=== PATIENT | female | born 1965 | race Caucasian/White ===

== ENCOUNTER 2024-11-22 15:04 | Outpatient (AMB) | payer OTHER, SELFPAY ==
--- NOTE | 2024-11-22 15:06 | A.OFFVIS_ITS ---
Vital Signs 11/22/24 15:10 Height 5 ft 4 in Weight 254 lb BMI 43.6 BP 141/78 H Blood Pressure Location Lt brachial Position Sitting Respiration 16 Pulse 90 Pulse Source Pulse Oximeter Pulse Oximetry (%) 96 Oxygen Delivery Method Room Air Intake Visit Reasons: LOW BACK PAIN Chip Unloader Required: No Accompanied by: Life Partner Allergies oxycodone Allergy (Mild, Verified 11/22/24 15:08) Unknown HPI Comments Details: The patient is a 59-year-old female presenting with chronic back pain and left groin and thigh pain. The pain began in 2018 and has been persistent, radiating from the back through the left groin, hip, outer thigh, and knee, sometimes extending to the ankle. Denies any numbness or tingling, but reports increased sensitivity to light touch. 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 Patient reports searing pain that radiates from superior lateral hip into her left groin with throbbing sensation down to her thigh. She also reports throbbing pain in her lateral joint line of left knee. On bad days, her pain radiates down through her calf and into her left foot. Patient sleeps with pillow under her knee, on a recliner or her bed. She also rides her electric assist bike that does not seem aggravate her symptoms. The patient has been evaluated by multiple specialists, including [facility] Orth opedics and Neurology, with varying diagnoses such as a meniscus tear and tight calf muscles, but declined surgical intervention. Physical therapy was attempted, but the pain worsened over time. The patient was prescribed duloxetine, which initially alleviated the pain but has since become less effective, with pain returning in the left anterior thigh and leg. She avoids wearing tight clothing. Denies previous spine surgery or injections. Recent lumbar spine MRI noted for mild spondylosis without significant central or neuroforaminal stenosis. The patient has a history of major depressive disorder, fibromyalgia, morbid obesity, sleep apnea and hypothyroidism, which are being managed concurrently. She has undergone multiple surgeries, including lap band surgery and removal of the left ovary, and has an umbilical hernia that has not been repaired. The patient also reports a history of fatty liver and is cautious about using medications like Tylenol and ibuprofen due to this condition. - Pain onset in 2017, chronic in nature - Radiates from back to left groin, hip, outer thigh, knee, and sometimes ankle - Described as constant throbbing, dull, sore, hurting, aching, heavy, tiring, r adiating, fearful, at times unbearable, 8-10/10 throughout the day, 5-6/10 sitting on recliner - Exacerbated by prolonged standing, walking, sitting, and certain movements, changing positions - Relieved initially by duloxetine, but effectiveness has decreased - Interferes with daily activities such as driving and standing up - Affect: Pain impacts mood, causing frustration and fear of masking underlying issues - Analgesia: Duloxetine prescribed, initially effective but now less so; patient avoids Tylenol and Ibuprofen due to fatty liver - Adverse Effects: Duloxetine affects sexual drive - Activities of Daily Living: Pain affects ability to stand, drive, and perform daily tasks - Aberrant Drug Related Behaviors: No evidence of misuse or abuse of medications Oswestry Low Back Pain Disability Score=30 PFSH Medical History (Updated 11/22/24 @ 16:02 by GARETH Nguyen) Hx of pilonidal cyst Vitamin D deficiency Rotator cuff syndrome of left shoulder JULIETA (obstructive sleep apnea) Morbid obesity IFG (impaired fasting glucose) Hypothyroidism GERD (gastroesophageal reflux disease) Fibromyalgia Dysmetabolic syndrome X Carpal tunnel syndrome Asthma Allergic rhinitis Surgical History (Updated 11/22/24 @ 15:21 by Anabelle Ramsey MA) Hx of laparoscopic gastric banding History of endometrial ablation Hx of section Review of Systems Const Details: - Musculoskeletal: Reports chronic back pain radiating to left groin, hip, outer thigh, knee, and ankle - Neurological: Denies numbness or tingling, bladder or bowel dysfunction or saddle anesthesia All systems reviewed & are unremarkable except as noted in HPI and below Physical Exam Vital Signs: Last Vital Signs Pulse 90 11/22/24 15:10 Resp 16 11/22/24 15:10 BP 141/78 H 11/22/24 15:10 Pulse Ox 96 11/22/24 15:10 Oxygen Delivery Method Room Air 11/22/24 15:10 BMI result Body Mass Index 43.6 General: Appears afebrile. Morbidly obese. Alert and oriented. Mood and affect appropriate. Follows and participates in conversation appropriately. Respiratory effort is unlabored. No cough. Able to transition from sit to stand unassisted. Ambulates with bilaterally normal heel strike and toe off. GI Inspection: Yes normal to inspection, No abdominal wall ecchymosis, Yes Abdom inal panniculus present and Yes obesity Palpation (GI): Soft to palpation, Tenderness to palpation present (GI) in the RLQ, Hernia present indirect inguinal on the left and diffuse and umbilical and No Rebound tenderness present General: Yes no CVA tenderness Back/Spine/Pelvis Other: Patient is able to walk and stand on heels and tip toes with no difficulties demonstrating good motor tone. No limping. Can flex forward to 65-70 degrees and extend to 5-10 degrees before experiencing lumbar pain. Demonstrates 5/5 strength of quadriceps bilaterally as well as flexion/dorsiflexion of bilateral feet against resistance. 2+ pedal pulses bilaterally. Straight leg rise with dorsiflexion negative bilaterally. +2 patellar and achilles reflexes bilaterally. Facet loading test positive bilaterally. Jesus Manuel sign, Loyd?s, Pelvic compression and Stinchfield tests are positive bilaterally. Mild groin pain with I/E hip rotations on the left. TTP to left outer thigh with light touch. TTP to bilateral GTB. Valsalva maneuver negative. Back: no CVA tenderness Cervical Spine: cervical ROM normal, cervical muscular tenderness, No Cervical spine scars present, No Cervical spine tenderness and No step off deformity Thoracic/Lumbar Spine: thoracic and lumbar spine normal to inspection, No Thoracic/lumbar spine scar(s), Lasegue's sign negative, straight leg raise negative bilaterally, pain with thoraco-lumbar ROM, paraspinal muscle tenderness, thoraco-lumbar ROM limited, No thoracic spinal tenderness and lumbar spinal tenderness (L4-S1) Sacroiliac joints: bilaterally tender to palpation Extrem General: Yes capillary refill normal, Yes no clubbing, cyanosis or edema and Yes no calf tenderness Results Reviewed Results Reviewed: MR LUMBAR SPINE WITHOUT CONTRAST 10/24/24 RAYUS INDICATION: Back and left leg pain COMPARISON: MRI lumbar spine of 01/06/2019 TECHNIQUE: Multiplanar T1 and T2-weighted imaging of the lumbar spine. FINDINGS: The conus is in its normal position at the level of T12-L1. Throughout the lumbar spine, diffuse degenerative disc changes are present with varying degrees of disc desiccation. T12-L2: Shows no significant abnormalities. L2-3: Mild right facet osteoarthritic changes are present. The central canal and neural foramen are patent. L3-4: Moderate facet osteoarthritic changes are present. There is hypertrophy and redundancy of both ligamentum flavum with mild narrowing of the lateral re cesses. The central canal and neural foramen are patent. L4-5: Mild disc bulging is present. Mild facet osteoarthritic changes are present. The central canal and neural foramen are patent. L5-S1: Mild facet osteoarthritic changes are present. The central canal and neural foramen are patent. IMPRESSION: Mild spondylotic findings as described above without evidence of high-grade canal or foraminal stenosis and these are unchanged compared to the prior examination. XR BILATERAL HIPS WITH AP PELVIS 11/22/24 CLINICAL INFORMATION: M25.552 - Pain in left hip COMPARISON: None available. TECHNIQUE: AP and frog-leg lateral views of each hip and an AP view of the pelvis. FINDINGS: SI joints are mild to moderately narrowed with subchondral sclerosis. Right hip joint space is preserved. There are small marginal sites involving acetabular roof. The left joint space is preserved. There are small marginal osteophyte involving the femoral head, fovea, and acetabular roof. There are enthesophytes involving both greater trochanters, and the anterior superior iliac spines. IMPRESSION: Mild osteoarthritis, left greater than right hip. Moderate degenerative changes in the SI joints. Assessment & Plan Assessment & Plan (1) Chronic pain of right inguinal region: Code(s): R10.31 - Right lower quadrant pain; G89.29 - Other chronic pain Category: Medical (2) Chronic left hip pain: Code(s): M25.552 - Pain in left hip; G89.29 - Other chronic pain Category: Medical (3) Sacroiliac joint pain: Code(s): M53.3 - Sacrococcygeal disorders, not elsewhere classified Category: Medical (4) Meralgia paresthetica of left side: Code(s): G57.12 - Meralgia paresthetica, left lower limb Category: Medical Plan The plan involves focusing on the sacroiliac joint and hip. Lumbar spine MRI results were reviewed with patient today. Diagnostic injections for the sacroiliac joint and lateral cutaneous femoral nerve are considered to determine the source of pain and potential relief options. Patient will notify our office on her decision to proceed with injections. An abdominal ultrasound is recommended to rule out inguinal hernia involvement in the pain presentation. Neurodiagnostic studies to further evaluate concerns for meralgia paresthetica of left side. All questions and concerns have been answered and patient agreed with the treatment plan. Follow up for US/xray results and sooner as needed. Patient was informed and verbally consented to the use of an ambient scribe for clinic note documentation during this visit. Orders: Orders XR hip BI w PEL1V 11/22/24 G89.29 - Other chronic pain, M25.552 - Pain in left hip, M53.3 - Sacrococcygeal disorders, not elsewhere classified US abdomen complete 11/22/24 G89.29 - Other chronic pain, R10.31 - Right lower quadrant pain NE electromyogram (EMG) 11/22/24 G57.12 - Meralgia paresthetica, left lower limb NE nerve conduction velocity 11/22/24 G57.12 - Meralgia paresthetica, left low er limb Coding Level of Care Code New Pt Level 4 (88251) Diagnoses Chronic pain of right inguinal region R10.31; G89.29 Chronic left hip pain M25.552; G89.29 Sacroiliac joint pain M53.3 Meralgia paresthetica of left side G57.12
[2024-11-22 15:10] VITALS: BP 141/78; PULSE 90; RESP 16; O2SAT 96; BMI 43.6
--- OUTSIDE RECORDS SUMMARY | 2024-11-22 18:04 | XMS_ITS | Clinical Summary ---
Author Organization [facility] Address [address] [address] Phone Care Team Providers Care Hockey Instructor Name Role Phone Marcos Crawford MD Primary Care Provider [phone] Allergies Active Allergy Reactions Criticality Noted Date Comments Oxycodone 04/07/2019 Oxycodone-Acetaminophen 04/07/2019 Medications ibuprofen (ADVIL,MOTRIN) 800 MG tablet 800 mg as needed. Active levothyroxine (SYNTHROID, LEVOTHROID) 100 MCG tablet 100 mcg daily. Acti ve celecoxib (CELEBREX) 200 MG capsule Take 200 mg by mouth daily. Active oxybutynin (DITROPAN-XL) 10 MG 24 hr tablet Take 10 mg by mouth as needed. Active multivitamin (ONE-A-DAY ESSENTIAL ORAL) Take 1 capsule by mouth. Active cetirizine (ZYRTEC) 10 MG tablet Take 10 mg by mouth daily. Active diclofenac sodium (VOLTAREN) 1 % GelIndications: Chronic midline low back pain without sciatica Apply 4 g topically 4 (four) times a day. 100 Tube 3 0 Active Active Problems Problem Noted Date Diagnosed Date Pain in both lower extremities 04/07/2019 Assessment & Plan (04/11/2019 10:32 PM EST): Use warm packs versus warm shower or warm bath prior to gentle stretching, massage. Warm pool therapy may provide additional benefit. Consider acupuncture versus acupressure in addition to topical creams versus patches as needed Weakness of both lower extremities 04/07/2019 Assessment & Plan (04/11/2019 10:27 PM EST): Most likely multifactorial rather than mostly inflammatory. Gentle, regular exercise routine as tolerated, gradually building up strength and endurance by no more than 10% increments every 7-14 days as tolerated. Warm pool therapy may be of particular benefit Fibromyalgia 04/07/2019 Assessment & Plan (04/11/2019 10:31 PM EST): We discussed the diagnosis of fibromyalgia, its natural history, and treatment. Specifically, we discussed that treatment requires many interventions and recognition that we are often unable to get patients completely pain free. Management of fibromyalgia requires patient engagement to address any underlying depression, anxiety, or sleep disorder. Further, patients are encouraged to engage in regular physical activity. Some studies have suggested that Samm Chi is effective. Other physical activity may including water-based aerobics, gentle yoga, biking, walking, Pilates, warm pool therapy etc. In terms of pharmacotherapy, there are many options, including tricyclic antidepressants, duloxetine, gabapentin or pregabalin, and cyclobenzaprine as well as other similar medications to those listed. In this case, the patient might try to focus on nonpharmacologic therapy first including gentle, regular warm pool therapy and personal psychotherapy with a therapist well-versed in chronic pain management and fibromyalgia. She may benefit from reading book written by Dr Olu Doyle [facility] catastrophe [facility] addressing management strategies for patients with fibromyalgia utilizing mindfulness approach. Acquired hypothyroidism 04/07/2019 Assessment & Plan (04/11/2019 10:23 PM EST): Continue thyroid replacement therapy as prescribed and follow closely with prescribing physician as scheduled. Weight gain 04/07/2019 Assessment & Plan (04/11/2019 10:24 PM EST): Watchful diet particularly for high calorie and saturated fat content. Portion control. Limit concentrated sugars, saturated fats and calories in the diet. Keep well-hydrated. If unable to achieve expected goal consider formal dietary/nutritional support. NSAID long-term use 04/07/2019 Assessment & Plan (04/11/2019 10:34 PM EST): Take the lowest dose, with least frequency, for shortest time. Remember to take it always with food. Favor topical over oral preparations. Morbid obesity with BMI of 50.0-59.9, adult 02/0 08/2019 Assessment & Plan (04/11/2019 10:25 PM EST): See #5 above. Vitamin D insufficiency 04/07/2019 Assessment & Plan (04/11/2019 10:25 PM EST): Serum level requested to make sure that she does not need additional supplementation. Chronic midline low back pain without sciatica 0 04/07/2019 Assessment & Plan (04/11/2019 10:34 PM EST): Avoid falls, injuries, overuse, repeated bending, stooping, heavy lifting. Gentle regular core muscle strengthening exercises after warm pack. Work diligently on bringing body weight as close as possible to ideal range for her height If not better or worse may need to consider local steroid injection Social History Tobacco Use Types Packs/Day Years Used Date Smoking Tobacco: Never Smokeless Tobacco: Never Education Answer Date Recorded Are you interested in more education? Not on gary e 06/27/2022 Are you concerned about learning? Not on file 06/27/2022 No 06/27/2022 No 06/27/2022 Digital Access Answer Date Recorded No 07/22/2022 No 07/22/2022 No 07/22/2022 Reliable internet access at home? Not on file 07/22/2022 Device with a working camera? Not on file Comments Unknown Sex and Gender Information Value Date Recorded Sex Assigned at Not on file Legal Sex Female 3:12 PM EST Gender Identity Not on file Sexual Orientation Not on file Last Filed Vital Signs Vital Sign Reading Time Taken Comments Blood Pressure 124/60 04/07/2019 3:22 PM EST Pulse - - Temperature - - Respiratory Rate - - Oxygen Saturation - - Inhaled Oxygen Concentration - - Weight 132.5 kg (292 lb 3.2 oz) 04/07/2019 3:22 PM EST Height 162.6 cm (5' 4 ) 04/07/2019 3:22 PM EST Body Mass Index 50.16 04/07/2019 3:22 PM EST Plan of Treatment Health Maintenance Due Date Last Done Comments Adult Td,Tdap Booster 1964 LIPID PANEL 1964 TSH LEVEL 1964 DEPRESSION SCREENING 1976 HEPATITIS C SCREENING 1982 HIV ONE-TIME SCREENING (18-6 5 YEARS) 1982 PAP SMEAR 1985 MAMMOGRAM 2004 COLOGUARD 2009 COLONOSCOPY 2009 COLORECTAL CANCER SCREENING 2009 FIT TEST 2009 FOBT 2009 SIGMOIDOSCOPY 2009 VIRTUAL COLONOSCOPY 2009 PNEUMOCOCCAL VACCINES (50+ y ears) (1 of 1 - PCV) 2014 ZOSTER VACCINES (1 of 2) 2014 RSV VACCINE (1 - Risk 60-74 years 1-dose series) 2024 INFLUENZA VACCINE (#1) 2024 COVID-19 VACCINE (2 - 2024-2 6 season) 2024 05/24/2020 SMOKING STATUS SCREENING (On ce After 26 Yrs) Completed 04/07/2019 HEPATITIS A VACCINES Aged Out No long er eligible based on patient's age to complete this topic HIB VACCINES Aged Out No longer eligi ble based on patient's age to complete this topic MENINGOCOCCAL VACCINES (ACWY) Aged Out No longer eligible based on patient's age to complete this topic MENINGOCOCCAL VACCINES (B) Aged Out N o longer eligible based on patient's age to complete this topic Medical Devices Not on file Insurance [facility] TOTAL CHOICE INDEMNITY AUDREY CABALLERO [id number] [employer] [facility] TOTAL CHOICE [facility]DEMNITY [employer] [facility] TOTAL CHOICE INDEMNITY [employer] [facility] TOTAL CHOICE IN[facility]MNITY [facility] TOTAL CHOICE [facility]DEMNITY [facility] TOTAL CHOICE INDEMNITY [facility] [employer]OTAL [employer] [facility]DEMNITY [facility] [employer]OTAL CHO[employer] [facility]DEMNITY [facility] TOTAL CHOICE INDEMNITY Care Teams Hockey Instructor Relationship Specialty Start Date End Date Marcos Crawford MD [address] [place] [address] PCP - General Internal Medicine 02/03/19 Additional Source Comments The information contained in this document represents components of the legal health record. It is not the complete legal health record.[facility]
--- OUTSIDE RECORDS SUMMARY | 2024-11-22 18:04 | XMS_ITS | Continuity of Care Document ---
Author Organization [facility] [address] [place] [address] Phone [phone] Social History Type Date Description Comments Sex Female Sex Unknown Medical Devices Description No Information Available Encounters Description No Information Available Assessments Description No Information Available Plan of Treatment No Information Available Functional Status Description No Information Available Mental Status Description No Information Available Referrals Description No Information Available
== END 2024-11-22 15:43 | disposition home or self-care (01) ==
PROVIDERS: PCP Internal Medicine; Visit Provider Nurse Practitioner Family
DX: R10.31 Right lower quadrant pain (principal); G89.29 Other chronic pain; M25.552 Pain in left hip; M53.3 Sacrococcygeal disorders, not elsewhere classified; G57.12 Meralgia paresthetica, left lower limb
CPT/HCPCS: 99204

== ENCOUNTER 2024-11-22 15:04 | Outpatient (REF) | payer OTHER, SELFPAY ==
--- NOTE | ~2024-11-22 | XR_ITS ---
EXAMINATION: XR BILATERAL HIPS WITH AP PELVIS CLINICAL INFORMATION: M25.552 - Pain in left hip COMPARISON: None available. TECHNIQUE: AP and frog-leg lateral views of each hip and an AP view of the pelvis. FINDINGS: SI joints are mild to moderately narrowed with subchondral sclerosis. Right hip joint space is preserved. There are small marginal sites involving acetabular roof. The left joint space is preserved. There are small marginal osteophyte involving the femoral head, fovea, and acetabular roof. There are enthesophytes involving both greater trochanters, and the anterior superior iliac spines. XR/XR hip BI w PEL1V IMPRESSION: Mild osteoarthritis, left greater than right hip. Moderate degenerative changes in the SI joints. Electronically signed by: Rusty Young MD 11/22/2024 04:36 PM EDT
== END 2024-11-22 15:05 | disposition home or self-care (01) ==
LOC: HO.XRAY 15:04
PROVIDERS: PCP Internal Medicine; Visit Provider Nurse Practitioner Family
DX: G89.29 Other chronic pain (principal); M25.552 Pain in left hip; R10.31 Right lower quadrant pain; M53.3 Sacrococcygeal disorders, not elsewhere classified; G57.12 Meralgia paresthetica, left lower limb
CPT/HCPCS: 73521

== ENCOUNTER → 2024-11-22 15:52 | Outpatient (BNV) | payer OTHER, SELFPAY | PROVIDERS: PCP Internal Medicine; Visit Provider Radiology Diagnostic Radiology | DX: M16.12 Unilateral primary osteoarthritis, left hip (principal) | CPT/HCPCS: 73521 ==

== ENCOUNTER 2025-01-31 14:43 | Outpatient (REF) | payer OTHER, SELFPAY ==
--- NOTE | ~2025-01-31 | US_ITS ---
EXAMINATION: US PELVIS LIMITED HISTORY: R10.31 - Right lower quadrant pain COMPARISON: There are no prior studies available for comparison. FINDINGS: Sonographic examination of the left anterior abdominal wall was performed. There is a 2.8 x 0.7 x 0.7 cm lymph node. No hernia is identified. US/US pelvic limited IMPRESSION: No hernia is identified in the left anterior abdominal wall. Electronically signed by: Jimbo Case MD 01/31/2025 03:14 PM [facility]
--- OUTSIDE RECORDS SUMMARY | 2025-01-31 16:37 | XMS_ITS | Clinical Summary ---
Author Organization [facility] Address [address] [address] Phone Care Team Providers Care Mechanical Engineering Intern Name Role Phone Marcos Crawford MD Primary Care Provider [phone] Allergies Active Allergy Reactions Criticality Noted Date [...] ears) (1 of 1 - PCV) 2014 RSV VACCINE (1 - Risk 50-74 years 1-dose series) 2014 ZOSTER VACCINES (1 of 2) 2014 INFLUENZA VACCINE (#1) 2024 COVID-19 VACCINE (2 [...] topic Medical Devices Not on file [facility] AUDREY CABALLERO [id number] [employer]em [employer] [facility] TOTAL CHOICE INDEMNITY [employer] [facility] TOTAL CHOICE INDEMNITY ar[employer] [facility] TOTAL CHOICE INDEMNITY arvi[employer] [facility] TOTAL CHOICE INDEMNITY arvi[employer] [facility] TOTAL CHOICE [facility] TOTAL CHOICE [facility]DEMN[facility] TOTAL CHOICE INDEMNITY [facility] TOTAL CHOICE INDEMNITY Care Teams Mechanical Engineering Intern Relationship Specialty Start Date End Date Marcos Crawford MD [address] [place] [address] PCP - General Internal Medicine 02/03/19 Additional Source Comments The information contained in this document represents components of the legal health record. It is not the complete legal health record.[facility]
--- OUTSIDE RECORDS SUMMARY | 2025-01-31 16:37 | XMS_ITS | Continuity of Care Document ---
Author Organization [facility] [address] [place] [address] Phone [phone] Social History Type Date Description Comments Sex Female Sex Unknown Medical Devices Description No Information Available Encounters Description No Information Available Assessments Description No Information Available Plan of Treatment No Information Available Functional Status Description No Information Available Mental Status Description No Information Available Referrals Description No Information Available
== END 2025-01-31 14:44 | disposition home or self-care (01) ==
LOC: HO.US 14:43
PROVIDERS: PCP Internal Medicine; Visit Provider Nurse Practitioner Family
DX: R10.31 Right lower quadrant pain (principal); G89.29 Other chronic pain
CPT/HCPCS: 76857

== ENCOUNTER → 2025-01-31 14:46 | Outpatient (BNV) | payer OTHER, SELFPAY | PROVIDERS: PCP Internal Medicine; Visit Provider Radiology Diagnostic Radiology | DX: R10.31 Right lower quadrant pain (principal) | CPT/HCPCS: 76857 ==

== ENCOUNTER 2025-02-15 08:16 | Outpatient (REF) | payer OTHER, SELFPAY ==
--- NOTE | 2025-02-15 08:19 | EMG_ITS ---
Chief complaint: A few years now of left lateral hip/thigh pain. Denies numbness. Denies lower back pain. Reason for referral: Evaluate for meralgia paresthetica, neuropathy or radiculopathy Referred by: Salena Wright NP Procedure done: Left lower extremity NCS/EMG Precautions and/or limitations: None The limb temperature was monitored continuously and remained between 32-36 degrees C during the performance of the NCS. Nerve Conduction Studies Anti Sensory Summary Table ?Stim Site NR Onset (ms) Norm Onset (ms) Peak (ms) Norm Peak (ms) O-P Amp (?V) Norm O-P Amp Site1 Site2 Delta-0 (ms) Dist (cm) Aaron (m/s) Norm Aaron (m/s) Left Sural Anti Sensory (Lat Mall) Calf ? 1.1 3.8 <4.0 8.6 >5.0 Calf Lat Mall 1.1 14.0 127 Ortho Sensory Summary Table ?Stim Site NR Onset (ms) Norm Onset (ms) Peak (ms) O-P Amp (?V) Norm O-P Amp Site1 Site2 Delta-0 (ms) Dist (cm) Aaron (m/s) Norm Aaron (m/s) Left Lat Femoral Cutan Ortho Sensory (Thigh) Asis ? 0.3 39.7 Asis Thigh 13.5 ? 0.2 33.2 Motor Summary Table ?Stim Site NR Onset (ms) Norm Onset (ms) O-P Amp (mV) Norm O-P Amp iAmp (mV) Amp (1st) (%) Site1 Site2 Delta-0 (ms) Dist (cm) Aaron (m/s) Norm Aaron (m/s) Left Peroneal Motor (Ext Dig Brev) Ankle ? 4.0 <4.0 8.0 >2.5 9.4 100.0 Ankle Ext Dig Brev 4.0 0.0 B Fib ? 10.4 7.1 8.3 88.8 B Fib Ankle 6.4 32.0 50 >40 Poplt ? 10.9 7.2 8.4 90.0 Poplt B Fib 0.5 4.0 80 >40 Left Tibial Motor (Abd Michele Brev) Ankle ? 4.1 <5 11.5 >2.5 15.9 100.0 Ankle Abd Michele Brev 4.1 0.0 Knee ? 11.4 9.1 12.5 79.1 Knee Ankle 7.3 37.0 51 >40 EMG ?Side Muscle Nerve Root Ins Act Fibs Psw Amp Dur Poly Recrt Int Pat Comment Left AbdHallucis MedPlantar S1-2 Nml Nml Nml Nml Nml 0 Nml Complete Left AntTibialis Dp Br Peron L4-5 Nml Nml Nml Nml Nml 0 Nml Complete Left PostTibialis Tibial L5, S1 Nml Nml Nml Nml Nml 0 Nml Complete Left MedGastroc Tibial S1-2 Nml Nml Nml Nml Nml 0 Nml Complete Left VastusMed Femoral L2-4 Nml Nml Nml Nml Nml 0 Nml Complete FINDINGS: All motor and sensory nerves tested showed normal latencies, amplitudes and conduction velocities. Left lateral cutaneous femoral nerve was present. Concentric needle EMG was performed in selected muscles of the left lower extremity. Study did not reveal signs of electric abnormalities as shown in the table above. IMPRESSION: 1. This is a normal study. 2. There is no electrodiagnostic evidence for peroneal neuropathy, tibial neuropathy, lumbosacral plexopathy, lumbar radiculopathy, meralgia paresthetica, or peripheral neuropathy. CLINICAL COMMENT: Meralgia paresthetica is a clinical diagnosis, although it is a waste basket diagnosis after ruling out other possibilities. Consider left trochanter bursitis or ITB syndrome. Thank you for your kind referral. Larisa Jaramillo MD, LEENA Board Certified, [place] [employer] and Rehabilitation (ABPMR) Board Certified, [place] Board of Electrodiagnostic Medicine (ABEM) CODIN 07888 x 1 extremity MTDD
--- OUTSIDE RECORDS SUMMARY | 2025-02-15 08:21 | XMS_ITS | Continuity of Care Document ---
Author Organization [facility] [address] [place] [address] Phone [phone] Social History Type Date Description Comments Sex Female Sex Unknown Medical Devices Description No Information Available Encounters Description No Information Available Assessments Description No Information Available Plan of Treatment No Information Available Functional Status Description No Information Available Mental Status Description No Information Available Referrals Description No Information Available
--- OUTSIDE RECORDS SUMMARY | 2025-02-15 08:21 | XMS_ITS | Clinical Summary ---
Author Organization [facility] Address [address] [address] Phone Care Team Providers Care Propagation Manager Name Role Phone Marcos Crawford MD Primary Care Provider [phone] Allergies Active Allergy Reactions Criticality Noted Date [...] topic Medical Devices Not on file Insurance [facility] INDEMNITY AUDREY CABALLERO [id number] [employer] [facility] TOTAL CHOICE INDEMNITY [employer] [facility] TOTAL CHOICE INDEMNITY [employer] [facility] TOTAL CHOICE INDEMNITY [employer] [facility] TOTAL CHOICE INDEMNITY [employer] [facility] TOTAL CHOICE INDEMNITY [facility] TOTAL CHOICE INDEMNITY [facility] TOTAL CHOICE INDEMNITY [facility] TOTAL CHOICE INDEMNITY Care Teams Propagation Manager Relationship Specialty Start Date End Date Marcos Crawford MD [address] [place] [address] PCP - General Internal Medicine 02/03/19 Additional Source Comments The information contained in this document represents components of the legal health record. It is not the complete legal health record.[facility]
== END 2025-02-15 08:17 | disposition home or self-care (01) ==
LOC: HO.NEURO 08:16
PROVIDERS: PCP Internal Medicine; Visit Provider Nurse Practitioner Family
DX: G57.12 Meralgia paresthetica, left lower limb (principal)
CPT/HCPCS: 95886; 95908

== ENCOUNTER → 2025-02-15 08:19 | Outpatient (BNV) | payer OTHER, SELFPAY | PROVIDERS: PCP Internal Medicine; Visit Provider Physical Medicine & Rehabilitation | DX: M79.652 Pain in left thigh (principal) | CPT/HCPCS: 95886; 95908 ==